=== PATIENT | male | born 1980 | race Caucasian/White ===

== ENCOUNTER 2018-03-06 18:19 | Inpatient (IN) | payer BC ==
[2018-03-06 20:00] VITALS: BP 135/78; PULSE 80; RESP 16; TEMP 97.6; O2SAT 97
[2018-03-06] MEDS ORDERED: LORazepam 2 MG/ML VIAL IM PRN (21:00)
[2018-03-06] MEDS ORDERED: LORazepam 0.5 MG TAB PO PRN (21:00)
[2018-03-06] MEDS ORDERED: MAGNESIUM HYDROXIDE SUSP 30 ML CUP PO PRN (21:00)
[2018-03-06] MEDS ORDERED: diphenhydrAMINE HCL 50 MG CAP PO PRN (21:00)
[2018-03-06] MEDS ORDERED: ALUMINUM/MAGNESIUM/SIMETH 30 ML CUP PO PRN (21:00)
[2018-03-07 06:00] VITALS: BP 148/94; PULSE 59; RESP 18; TEMP 97.5; O2SAT 97
[2018-03-07 08:17] LABS: BLOOD UREA NITROGEN 6 MG/DL (7-18); CALCIUM 9.1 MG/DL (8.5-10.1); CHLORIDE 107 MEQ/L (98-107); CREATININE 0.93 MG/DL (0.60-1.30); GLOMERULAR FILTRATION RATE 91 ML/MIN (>89); GLUCOSE,RANDOM 97 MG/DL (74-106); SODIUM (NA) 142 MEQ/L (136-145)
[2018-03-07] MEDS: NICOTINE 21 MG/24 HR PATCH T-DERMAL SCH (08:18)
[2018-03-07] MEDS: REMOVE OLD NICOTINE PATCH T-DERMAL SCH (08:18)
[2018-03-07 08:19] LABS: CHOLESTEROL 109 MG/DL (120-200); TRIGLYCERIDES 102 MG/DL (42-150)
[2018-03-07 08:28] LABS: CHOLESTEROL/ HDL RATIO 4.44 RATIO; HDL CHOLESTEROL 24.5 MG/DL (40.0-60.0); LDL CHOLESTEROL 64 MG/DL (0-99)
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
--- NOTE | 2018-03-07 13:06 | PD.CONS ---
HPI Service [facility] Consult Requested By Primary Care Physician No Primary Care Physician Diagnoses: History of Present Illness History from patient, reviewed records from [facility]. Last , February 28, 2018 was at [facility] for overdose/suicidal attempt took benadryl- does not know how many does not know the dose per patient report. However per records, patient took 100 pills of 25 mg Benadryl. Patient was having marital problems. Patient reports he was in a hotel and that was in the same room sleeping while this happens. this was in hotel room, dad was in same room was intubated 03/02/18 oneal acted Patient was treated for aspiration pneumonia. Cultures from outside facility shows: genital cx sent per notes 03/02/18- negative for GC strep and yeast blood cx 03/01/18 no growth sputum cx - gram +ve cocci in chains few in cluters, pleomorphic gram positive rods sputum final- moderate enterobacter cloaceae, mrsa Patient was initially on vancomycin and Zosyn. Vancomycin was later discontinued. Per ID notes on March 04, 2018, p.o. minocycline was added. Review of Systems Except as stated in HPI: all other systems reviewed are Neg Past Family Social History Allergies: Coded Allergies: No Known Allergies (Verified Allergy, Unknown, 03/06/18) Past Medical History none Past Surgical History right ankle fx sx about 8 yrs ago Family History none that he knows of Social History smokes about at least a pack a day no etoh abuse no drugs Physical Exam Vital Signs Vital Signs Date Time Temp Pulse Resp B/P (MAP) Pulse Ox O2 Delivery O2 Flow Rate FiO2 03/07/18 06:00 97.5 59 18 148/94 (112) 97 03/06/18 20:00 97.6 80 16 135/78 (97) 97 Physical Exam GENERAL: This is a well-nourished, well-developed patient, in no apparent distress. SKIN: No rashes, ecchymoses or lesions. Cool and dry. HEAD: Atraumatic. Normocephalic. No temporal or scalp tenderness. EYES: No scleral icterus. No injection or drainage. ENT: Nose without bleeding, purulent drainage or septal hematoma.. Airway patent. NECK: Trachea midline. No JVD. Supple, nontender, no meningeal signs. CARDIOVASCULAR: Regular rate and rhythm without murmurs, gallops, or rubs. RESPIRATORY: Clear to auscultation. Breath sounds equal bilaterally. No wheezes , rales, or rhonchi. GASTROINTESTINAL: Abdomen soft, non-tender, nondistended. No guarding. MUSCULOSKELETAL: Extremities without clubbing, cyanosis, or edema.. No calf tenderness. Negative Homans sign bilaterally. NEUROLOGICAL: Awake and alert. Motor and sensory grossly within normal limits. Normal speech. Laboratory Laboratory Tests Test 03/07/18 07:18 Blood Urea Nitrogen 6 Creatinine 0.93 Random Glucose 97 Calcium Level 9.1 Sodium Level 142 Potassium Level 4.0 Chloride Level 107 Carbon Dioxide Level 28.0 Anion Gap 7 Estimat Glomerular Filtration Rate 91 Triglycerides Level 102 Cholesterol Level 109 LDL Cholesterol 64 HDL Cholesterol 24.5 Cholesterol/HDL Ratio 4.44 Thyroid Stimulating Hormone 3rd Gen 0.736 Result Diagram: 03/07/18 0718 Assessment and Plan Assessment and Plan Impression: Suicidal attempt on February 28, 2018. With Benadryl overdose. 100 pills of 25 mg p.o. Benadryl. Aspiration pneumonia. Sputum culture showing Enterobacter species and MRSA. Patient was on Zosyn, and minocycline at [facility] demands. Chronic tobacco abuse. Plan: Management per psychiatry regarding his suicidal attempt/depression. This is his first time attempt. Patient completed 8 days course of antibiotics. Pulmonary and infectious disease specialist notes from [facility] reviewed. There is no mention of duration of antibiotics. Since patient is asymptomatic, and was intubated only for 48 hours, I would continue antibiotics for another 2 more days and discontinue. We will sign off on the case. DVT prophylaxis with Lovenox. Lactobacillus while on antibiotics. Discussed Condition With Patient, nursing staff Ziyad Vagras MD Mar 07, 2018 13:06
[2018-03-07] MEDS: buPROPion HCL 150 MG SUSTAINED RELEASE TAB PO SCH (14:59)
[2018-03-07] MEDS ORDERED: MINOCYCLINE HCL 100 MG CAP PO ONE (15:00)
--- NOTE | 2018-03-07 16:21 | EKG ---
Date Performed: 03/07/2018 Time Performed: 07:54:50 PTAGE: 37 years EKG: SINUS BRADYCARDIA WITH MARKED SINUS ARRHYTHMIA INCOMPLETE RIGHT BUNDLE BRANCH BLOCK BORDERL INE ECG NO PREVIOUS TRACING DOCTOR: Lowell Thomas Interpretating Date/Time 03/07/2018 16:16:18
[2018-03-07] MEDS: ENOXAPARIN SODIUM 40 MG/0.4 ML SYRINGE SQ SCH (17:26)
[2018-03-07] MEDS: PIPERACIL-TAZO 4.5 GM PREMIX 100 ML IV SCH ×2 (17:26→21:35)
[2018-03-07] MEDS: LACTOBACILLUS ACIDOPHILUS TAB PO SCH (17:26)
[2018-03-07 18:35] LABS: HEMOGLOBIN A1C 5.3 % (4.3-6.0)
[2018-03-07 18:48] VITALS: BP 148/94; PULSE 59; RESP 18; TEMP 97.5; O2SAT 97
[2018-03-07] MEDS ORDERED: MINOCYCLINE HCL 100 MG CAP PO SCH (21:00)
[2018-03-08] MEDS: PIPERACIL-TAZO 4.5 GM PREMIX 100 ML IV SCH ×4 (03:53→22:18)
[2018-03-08 06:35] VITALS: BP 130/85; PULSE 75; RESP 18; TEMP 97.5; O2SAT 96
[2018-03-08] MEDS: NICOTINE 21 MG/24 HR PATCH T-DERMAL SCH (09:00)
[2018-03-08] MEDS: REMOVE OLD NICOTINE PATCH T-DERMAL SCH (09:00)
[2018-03-08] MEDS: buPROPion HCL 150 MG SUSTAINED RELEASE TAB PO SCH (09:00)
[2018-03-08] MEDS: LACTOBACILLUS ACIDOPHILUS TAB PO SCH ×3 (09:00→17:43)
[2018-03-08] MEDS: MINOCYCLINE HCL 50 MG CAP PO SCH ×2 (10:15→22:18)
--- NOTE | 2018-03-08 10:45 | HHI.PR ---
Subjective Remarks Follow-up visit overdose/suicide attempt, aspiration pneumonia. Patient seen and examined today. Reports he is doing well. Denies fevers and chills, nausea , vomiting, diarrhea. Denies shortness of breath or dyspnea, denies cough. Denies chest pain, palpitations, headache, dizziness. Reports ambulating without problems. Per nursing no acute issues overnight. Objective Vitals Vital Signs Date Time Temp Pulse Resp B/P (MAP) Pulse Ox O2 Delivery O2 Flow Rate FiO2 03/08/18 06:35 97.5 75 18 130/85 (100) 96 03/07/18 18:48 97.5 59 18 148/94 (112) 97 I/O 03/07/18 03/07/18 03/07/18 03/08/18 03/08/18 03/08/18 07:00 15:00 23:00 07:00 15:00 23:00 Intake Total 200 ml 820 ml 480 ml Output Total 560 ml Balance 200 ml 260 ml 480 ml Intake Oral 200 ml 720 ml 480 ml IV Total 100 ml Output Urine Total 560 ml # Voids 1 2 3 Result Diagram: 03/07/18717 Objective Remarks GENERAL: This is a well-nourished, well-developed patient, in no apparent distress. SKIN: Warm and dry. HEENT: Normocephalic. Pupils equal round and reactive. Nose without bleeding. Airway patent. NECK: Trachea midline. CARDIOVASCULAR: Regular rate and rhythm without murmurs, gallops, or rubs. RESPIRATORY: Diminished bases. No wheezes, rales, or rhonchi. GASTROINTESTINAL: Abdomen soft, non-tender, nondistended. Bowel Sounds normoactive x4. MUSCULOSKELETAL: Extremities without clubbing, cyanosis, or edema. NEUROLOGICAL: Awake and alert. Oriented to time, place, person. No focal neuro deficit. Moves all extremities. Normal speech. A/P Problem List: (1) Aspiration pneumonia ICD Code: J69.0 - Pneumonitis due to inhalation of food and vomit (2) Adjustment disorder with depressed mood ICD Code: F43.21 - Adjustment disorder with depressed mood Assessment and Plan Patient is a 37-year-old female with no known medical history who came into the hospital as a transfer from [facility] after overdose/suicide attempt 02/28/18. Per review of records, patient took 100 pills of 25 mg Benadryl secondary to marital problems. He is now admitted to inpatient psychiatry and further evaluation. Consulted for assistance in medical management. Overdose, suicidal attempt Adjustment disorder with depressed mood -Managed by psychiatry team Aspiration pneumonia -Patient was intubated 02/28/18 to 03/02/18. -Blood cultures from previous records with no growth to date. Sputum culture growing gram positive cocci in chains, few clusters, pleomorphic gram- positive rods. -Sputum final culture grows moderate Enterobacter cloacae, MRSA -Patient was initially started on vancomycin and Zosyn. Review of ID notes minocycline was added. -Continue Zosyn and minocycline with end date tomorrow 03/09/18 -Monitor respiratory status. Duo nebs as needed. DVT prop Lovenox Discussed with patient, nurse Stable from Hospitalist standpoint. We will sign off. Reconsult as needed. Saloni Zacarias Mar 08, 2018 10:45
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
[2018-03-08] MEDS: ENOXAPARIN SODIUM 40 MG/0.4 ML SYRINGE SQ SCH (15:34)
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
[2018-03-08 18:00] VITALS: BP 147/90; PULSE 78; RESP 17; TEMP 97.5; O2SAT 97
[2018-03-09] MEDS: PIPERACIL-TAZO 4.5 GM PREMIX 100 ML IV SCH ×2 (04:00→09:00)
[2018-03-09 06:04] VITALS: BP 126/71; PULSE 61; RESP 20; TEMP 97.6; O2SAT 98
[2018-03-09] MEDS: REMOVE OLD NICOTINE PATCH T-DERMAL SCH (09:00)
[2018-03-09] MEDS: NICOTINE 21 MG/24 HR PATCH T-DERMAL SCH (09:00)
[2018-03-09] MEDS: buPROPion HCL 150 MG SUSTAINED RELEASE TAB PO SCH (09:24)
[2018-03-09] MEDS: LACTOBACILLUS ACIDOPHILUS TAB PO SCH ×3 (09:24→17:19)
[2018-03-09] MEDS: MINOCYCLINE HCL 50 MG CAP PO SCH ×2 (10:15→20:41)
--- NOTE | 2018-03-09 11:53 | HHI.PYPN ---
Subjective Remarks On psychiatric evaluation today the patient is calm, cooperative. He reports being in a better mood today. Patient says that he is ready to be discharged. He denies SI, HI, VH, AH. Mental Status Examination Appearance: Appropriate Consciousness: Alert Orientation: Person, Place, Date/Time Motor Activity: Normal gait Speech: Unremarkable Language: Neologism Fund of Knowledge: Inadequate Attention and Concentration: Adequate Memory: Impaired (Surrounding events of overdose) Mood: Other ("Fine") Affect: Blunt, Other (Guarded) Thought Process & Associations: Linear Thought Content: Appropriate Hallucination Type: None Delusion Type: None Suicidal Ideation: Yes (Denies at this time) Suicidal Plan: No Suicidal Intention: Yes (Denies today) Homicidal Ideation: No Homicidal Plan: No Homicidal Intention: No Insight: Poor Judgment: Poor Results Vitals/IOs Vital Signs Date Time Temp Pulse Resp B/P (MAP) Pulse Ox O2 Delivery O2 Flow Rate FiO2 03/09/18 06:04 97.6 61 20 126/71 (89) 98 Intake and Output 03/09/18 03/09/18 03/10/18 08:00 16:00 00:00 Intake Total 0 ml 520 ml Balance 0 ml 520 ml Assessment & Plan Problem List: (1) Adjustment disorder with depressed mood ICD Codes: F43.21 - Adjustment disorder with depressed mood Assessment & Plan: Support provided, continue current psychotropics. Assessment & Plan Estimated LOS: days Justification for Cont. Inpt. high risk to decompensate at a lower level of care. Darci Medina MD Mar 09, 2018 11:53
[2018-03-09] MEDS: ENOXAPARIN SODIUM 40 MG/0.4 ML SYRINGE SQ SCH (17:19)
[2018-03-09 18:25] VITALS: BP 137/73; PULSE 93; RESP 21; TEMP 97.8; O2SAT 99
[2018-03-10 07:22] VITALS: BP 121/75; PULSE 76; RESP 18; TEMP 97.4; O2SAT 96
[2018-03-10] MEDS: LACTOBACILLUS ACIDOPHILUS TAB PO SCH ×3 (08:50→17:28)
[2018-03-10] MEDS: NICOTINE 21 MG/24 HR PATCH T-DERMAL SCH (08:50)
[2018-03-10] MEDS: REMOVE OLD NICOTINE PATCH T-DERMAL SCH (08:50)
[2018-03-10] MEDS: buPROPion HCL 150 MG SUSTAINED RELEASE TAB PO SCH (08:50)
--- NOTE | 2018-03-10 11:09 | HHI.PYPN ---
Subjective Remarks On psychiatric evaluation today the patient is calm, cooperative. He reports being in a better mood, denies anhedonia, hopelessness, helplessness. Patient says that he is ready to be discharged. He denies SI, HI, VH, AH. Mental Status Examination Appearance: Appropriate Consciousness: Alert Orientation: Person, Place, Date/Time Motor Activity: Normal gait Speech: Unremarkable Language: Neologism Fund of Knowledge: Inadequate Attention and Concentration: Adequate Memory: Impaired (Surrounding events of overdose) Mood: Other ("Fine") Affect: Blunt, Other (Guarded) Thought Process & Associations: Linear Thought Content: Appropriate Hallucination Type: None Delusion Type: None Suicidal Ideation: Yes (Denies at this time) Suicidal Plan: No Suicidal Intention: Yes (Denies today) Homicidal Ideation: No Homicidal Plan: No Homicidal Intention: No Insight: Poor Judgment: Poor Results Vitals/IOs Vital Signs Date Time Temp Pulse Resp B/P (MAP) Pulse Ox O2 Delivery O2 Flow Rate FiO2 03/10/18 07:22 97.4 76 18 121/75 (90) 96 Intake and Output 03/10/18 03/10/18 03/11/18 08:00 16:00 00:00 Intake Total 0 ml Balance 0 ml Assessment & Plan Problem List: (1) Adjustment disorder with depressed mood ICD Codes: F43.21 - Adjustment disorder with depressed mood Assessment & Plan: Continue current psychotropic medication. Supportive psychotherapy provided. Assessment & Plan Estimated LOS: days Justification for Cont. Inpt. Patient has an elevated risk to decompensate at a lower level of care Darci Medina MD Mar 10, 2018 11:09
--- NOTE | 2018-03-10 11:15 | HHI.PYPN ---
Subjective Remarks On psychiatric evaluation today the patient is calm, superficially cooperative, diffusely confused. Patient reports feeling okay, he has already eating his breakfast today, he has been compliant with his medications, no significant side effects reported. He is oriented to person, just partially oriented in time and place. No agitation, no behavioral dysregulation reported. Mental Status Examination Appearance: Appropriate Consciousness: Alert Orientation: Person, Place, Date/Time Motor Activity: Normal gait Speech: Unremarkable Language: Neologism Fund of Knowledge: Inadequate Attention and Concentration: Adequate Memory: Impaired (Surrounding events of overdose) Mood: Other ("Fine") Affect: Blunt, Other (Guarded) Thought Process & Associations: Linear Thought Content: Appropriate Hallucination Type: None Delusion Type: None Suicidal Ideation: Yes (Denies at this time) Suicidal Plan: No Suicidal Intention: Yes (Denies today) Homicidal Ideation: No Homicidal Plan: No Homicidal Intention: No Insight: Poor Judgment: Poor Results Vitals/IOs Vital Signs Date Time Temp Pulse Resp B/P (MAP) Pulse Ox O2 Delivery O2 Flow Rate FiO2 03/10/18 07:22 97.4 76 18 121/75 (90) 96 Intake and Output 03/10/18 03/10/18 03/11/18 08:00 16:00 00:00 Intake Total 0 ml Balance 0 ml Assessment & Plan Problem List: (1) Adjustment disorder with depressed mood ICD Codes: F43.21 - Adjustment disorder with depressed mood Assessment & Plan: Continue current psychotropic medications Assessment & Plan Estimated LOS: days Justification for Cont. Inpt. Patient has an elevated risk to decompensate at a lower level of care. Darci Medina MD Mar 10, 2018 11:15
[2018-03-10] MEDS: ENOXAPARIN SODIUM 40 MG/0.4 ML SYRINGE SQ SCH (15:49)
[2018-03-10 17:51] VITALS: BP 129/88; PULSE 69; RESP 17; TEMP 97.8; O2SAT 97
[2018-03-11 05:58] VITALS: BP 110/62; PULSE 82; RESP 17; TEMP 97.5; O2SAT 95
[2018-03-11] MEDS: NICOTINE 21 MG/24 HR PATCH T-DERMAL SCH (09:00)
[2018-03-11] MEDS: REMOVE OLD NICOTINE PATCH T-DERMAL SCH (09:00)
[2018-03-11] MEDS: LACTOBACILLUS ACIDOPHILUS TAB PO SCH ×2 (09:10→12:31)
[2018-03-11] MEDS: buPROPion HCL 150 MG SUSTAINED RELEASE TAB PO SCH (09:10)
[2018-03-11] MEDS ORDERED: BUPR150CR PO (11:34)
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
== END 2018-03-11 12:50 | disposition home or self-care (01) | DRG 881 ==
LOC: H4EA 18:28
PROVIDERS: ADMIT Student in an Organized Health Care Education/Training Program; ATTEND Student in an Organized Health Care Education/Training Program
DX: F43.21 Adjustment disorder with depressed mood (principal); J69.0 Pneumonitis due to inhalation of food and vomit; B95.62 Methicillin resistant Staphylococcus aureus infection as the cause of diseases classified elsewhere; B96.89 Other specified bacterial agents as the cause of diseases classified elsewhere; Z72.0 Tobacco use; Z91.5 Personal history of self-harm
CPT/HCPCS: 80048; 80061; 83036; 84443; 93005; J1650; J2543